=== PATIENT | female | born 1930 | race Caucasian/White ===

== ENCOUNTER → 2017-10-15 | Outpatient (CLI) | payer OTHER ==
--- NOTE | 2017-10-15 19:22 | Diagnostic Imaging Report ---
Exam: Head CT without contrast History: Dizziness, giddiness Comparison studies: None Technique: Axial images were obtained from the skull base to the vertex. Coronal and sagittal images reconstructed from the axial data. Intravenous contrast: None Findings: Scalp: No abnormalities. Bones: No fractures, blastic or lytic lesions. Brain sulci: Mildly probably. Ventricles: Moderate compensatory dilatation. No hydrocephalus. Extra-axial spaces: No masses, no fluid collection. Parenchyma: No mass, acute hemorrhage or acute cortical vascular insults. There are chronic cortical-subcortical insults with encephalomalacia and gliosis along the posterior left inferior frontal gyrus, left precentral gyrus and left insula in the left MCA vascular territory and along the right middle frontal gyrus along the right MCA cortical border zone. A few scattered hypodensities in the supratentorial white matter are nonspecific but most compatible with chronic small vessel ischemic changes. Sellar/suprasellar region: No abnormalities. Craniocervical junction: Patent foramen magnum. Incidental findings: Atherosclerotic calcifications in the carotid siphons and intradural vertebral arteries. Additional punctate vascular calcification along a right M2 MCA perisylvian branch. Bilateral lens replacements related to previous cataract surgery. Chronic inflammatory changes in the right mastoids. IMPRESSION: No acute intracranial abnormalities. Chronic findings: 1. Mild to moderate generalized volume loss. 2. Mild chronic microvascular ischemic changes. 3. 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 Findings discussed with Irma HATHAWAY at 7:15 PM on 10/15/2017. Signed by: Dr. Marvin Benítez M.D. on 10/15/2017 7:18 PM
== END ==
LOC: MRI 17:18
PROVIDERS: ATTEND Family Medicine
DX: R42 Dizziness and giddiness (principal); R20.2 Paresthesia of skin; R20.0 Anesthesia of skin
CPT/HCPCS: 70450